=== PATIENT | male | born 1960 | race Caucasian/White ===

== ENCOUNTER 2017-01-04 13:15 | Inpatient (IN) | payer OTHER ==
[~2017-01-04] VITALS: Ht 167.6 cm; Wt 72.2 kg
[2017-01-04] MEDS ORDERED: Heparin 5,000 Unit/mL Inj IVPUSH ONE (15:15)
[2017-01-04] MEDS ORDERED: Heparin 25K Unit/500mL 0.45 NS 25,000 UNIT in IV Premix 1 EACH IV SCH (15:15)
[2017-01-04] MEDS ORDERED: Heparin 5,000 Unit/mL Inj IVPUSH PRN (15:15)
[2017-01-04] MEDS ORDERED: Ondansetron 2 mg/mL 2 mL Inj IVPUSH PRN (15:15)
[2017-01-04 15:30] VITALS: BP 108/51; PULSE 61; RESP 14; O2SAT 99
--- NOTE | 2017-01-04 15:47 | PCM.HPMED ---
Subjective Date of Service Jan 04, 2017 Primary Provider: Admitting Physician: Shorty Beck MD Primary Care Physician: Kodi Ortega MD Attending Physician: Shorty Beck MD History of Present Illness: Chief Complaint:chest pain HISTORY was OBTAINED FROM PATIENT / MEDITECH NOTES History of present illness: A 56-year-old man w/ midsternal chest pain radiates to both arms for 2-3 days intermittent, constant x 1 day, worse w/ inspiration, short of breath, dizziness, all resolved w/ nitroglycerine at [facility] ER , then transferred here due to elevated trop for cardiac cath NSTEMI evaluation , after they discussed w/ Dr. Garza here. orthopnea x years, needs pillows. morning phelgm unchanged. no prior NC no prior CVA hx. mild nicotine urge, no extremity swelling, no vomiting At [facility] ER - VSS, nitorglycerine ( associated w/ BP 104/81 to 85/56, resolved w/ NS bolus) ASA x1, WBC 14.7 PMN 10.9, Hg 15.8 plt 244 Cr 1 LFT normal, Glu 140 lipase 324 Trop I 1.85 at 10:40 am Review of Systems - none of the following - F/C/sick contact / [place] / lightheaded / dizziness / acid reflux / abdominal pain/n/v/diarrhea / bleeding/ bruising / change in voiding / yeast infections / rash Ambulates by self FAMILY HX:F-CHF, sister kidney transplant as teenager SOCIAL HX: smoker MEDICATIONS: PAST MEDICAL/SURGICAL HISTORY: liver nodules 2 years ago, incidental during abdominal pain evaluation tendonitis/ diffuse OA COPD Exam on admission: on RA NAD A and O x 3 mood affect WNL NC/AT / No icterus / No injected eyes / EOMI PERRL / No pharyngeal lesions/ No oral lesions / hearing intact Supple neck CTAB equal chest rise / no accessory muscle use / speaks in full sentences / crackles bilateral no wheeze no rhonchi RRR S1 S2 / no MRG / 2+ radial pulses Soft nt nd + BS no hepatosplenomegaly Lower extremities - No edema No cyanosis No ecchymosis No rash / No jaundice DAWSON Symmetrical facies STUDIES: EKG SR61 no ST changes Trop 0.441 BNP 421.5 TSH 5.33 MAg 2.1 IMAGING: CXR done at [facility], request report tomorrow if not yet faxed Active issues and reason for admission NSTEMI w/ reactive leukocytosis/left shift --lipid panel, serial trop, ASA nitro heparin gtt, pending cardiac cath, Dr. Garza --inr ptt pending Orthopnea w/ elevated BNP --pending echo elevated TSH --pending free t4 Chronic issues known prior to admission, present on admission smoker --nicotine patch/gum prn Liver nodule hx of EtOH, LFT monitored by PCP but no recent imaging apparently DM --SSI Diet npo then DM diet after cardiac cath DVT prophylaxis already heparin gtt ambulate Code full Disposition inpt. Assessment and plan were discussed with patient Allergies Coded Allergies: acetaminophen (Verified Allergy, Severe, Hives, 01/04/17) oxycodone (Verified Allergy, Severe, Hives, 01/04/17) tramadol (Verified Allergy, Severe, Hives, 01/04/17) metformin (Verified Allergy, Mild, stomach pain, 01/04/17) Shorty Beck MD Jan 04, 2017 15:47
[2017-01-04 16:05] LABS: INR 0.95 ratio
[2017-01-04] MEDS ORDERED: Glucose 40% Oral Gel 15 Gm Tube PO PRN (16:20)
[2017-01-04 16:30] LABS: Magnesium 2.1 mg/dL (1.6-2.6)
[2017-01-04] MEDS: Insulin Human REGular 300 Unit/3 mL Inj SUBQ SCH ×2 (16:30→21:08)
[2017-01-04] MEDS: Sodium Chloride LOK Flush 10 mL Syringe IVFLUSH SCH (16:30)
[2017-01-04 16:42] LABS: TROPONIN T 0.441 ug/L (0.0-0.011)
[2017-01-04] MEDS: 0.9% Sodium Chloride 1,000 ML IV SCH (17:00)
[2017-01-04] MEDS ORDERED: Insulin LISPRO 300 Unit/3 mL Inj SUBQ SCH (17:30)
--- NOTE | 2017-01-04 17:46 | DRSVH ---
[facility] [address] [place] [address] Echocardiogram Report Name: ZACH GARRETT JStudy Date: 01/04/2017 Height: 66 in Hospital Exam Location: [facility] Weight: 156 lb Gender: Male BSA: 1.8 m2 : 1960 Age: 56 yrs BP: 99/60 mmHg Reason For Study: Chest pain, NSTEMI Ordering Physician: HOSPITALIST ANGELOerformed By: Ran Brantley Referring Physician: TIANA COPE Interpretation Summary Left ventricular systolic function is low normal with the ejection fraction visually estimated to be 50-55% with hypokinsis of the basal inferior segment extending into the basal inferoseptum which can be a normal variant. There are no other obvious focal wall motion abnormalities. Left ventricular wall thickness is at the upper limits of normal and diastolic parameters indicate normal left ventricular diastolic function and normal filling pressures. The right ventricle is normal size and right ventricular systolic function is at the lower limits of normal. Pulmonary artery pressures cannot be estimated because of the lack of a measurable TR jet velocity but the IVC suggests a low right atrial pressure of 3 mm Hg. Both atria are normal in size. There is mild mitral regurgitation but no other significant valvular heart disease. Procedure: A two-dimensional transthoracic echocardiogram with color flow and Doppler was performed. The study quality was technically adequate. There is no prior echocardiogram noted for this patient. The patient was in sinus bradycardia with heart rates between 56-63 bpm during the exam. Left Ventricle: The left ventricle is normal in size. Left ventricular wall thickness is at the upper limits of normal. Left ventricular systolic function is low normal. The ejection fraction is estimated to be 50-55%. There is hypokinsis of the basal inferior segment that extends into the basal inferoseptum which can be a normal variant. There are no other obvious focal wall motion abnormalities. Assessment of diastolic parameters indicates normal left ventricular diastolic function and normal filling pressures. Right Ventricle: The right ventricle is normal size. Right ventricular systolic function is at the lower limits of normal. Atria: Both atria are normal in size. The interatrial septum is intact with no evidence for an atrial septal defect. Mitral Valve: The mitral valve leaflets appear borderline thickened, but open well. There is mild mitral regurgitation. Aortic Valve: The aortic valve is grossly normal. The aortic valve opens well. No aortic regurgitation is present. Tricuspid Valve: The tricuspid valve is normal. No tricuspid regurgitation. Pulmonary artery pressures cannot be estimated because of the lack of a measurable TR jet velocity. Pulmonic Valve: The pulmonic valve is not well seen, but is grossly normal. There is a trace or physiologic amount of pulmonic regurgitation. There is no other significant valvular heart disease. Great Vessels: The aortic root is normal size. The dimensions of the ascending aorta are normal. The pulmonary artery is normal size. The IVC is of normal diameter and collapses greater than 50% with a sniff. This suggests a low right atrial pressure of 3 mm Hg. Pericardium/ Pleura There is no pericardial effusion. There is no pleural effusion. MMode/2D Measurements & Calculations LVIDd: 4.2 cm RA long axis LVOT diam: 2.2 cm LVIDs: 3.0 cm LA A2 area: 13.8 cm Ao root diam FS: 28.7 % LA A4 area: 15.6 cm RA area EPSS: 0.68 cm LA length (vol) asc Aorta Diam IVSd: 1.0 cm : 9.6 cm LVPWd: 0.96 cm LA vol: 38.7 ml RA vol Ao Arch Diam (Prox LA vol index : 20.6 ml Trans): 2.4 cm RA : 21.5 ml/m2 : 11.5 mm2 LV lucio. diameter/BSA LV sys. diameter/BSA RVD1 (basal) RVD2 (mid): 2.4 cm (cm/m^2): 2.3 (cm/m^2): 1.7 TAPSE: 2.0 cm Doppler Measurements & Calculations Ao V2 max: 113.5 cm/secMV E max giovani MV E/A: 1.2 PA V2 max Ao max P.2 mmHg : 70.7 cm/sec Med Peak E' Giovani : 81.7 cm/sec Ao mean P.6 mmHg MV A max giovani PA mean PG LVOT Max Giovani : 58.3 cm/sec E/E' med: 9.7 : 1.6 mmHg : 69.5 cm/sec MV P1/2t Lat Peak E' Giovani ERICK(I,D): 2.5 cm : 51.5 msec sev ratio: 0.67 E/E' lat: 9.5 E/e' average: 9.6 MV P1/2t max giovani Ao V2 mean LV V1 max PG PA V2 mean : 73.3 cm/sec : 59.8 cm/sec MVA(P1/2t): 4.3 cm2 Ao V2 VTI: 19.1 cmLV V1 VTI: 12.7 cm PA pr(Accel) ERICK(V,D): 2.3 cm2 : 24.5 mmHg ERICK indexed to BSA (cm^2/m^2): 1.4 Reading Physician:05:45 PM
--- NOTE | 2017-01-04 17:53 | NUR ---
Pt admitted to PCC at approx 1515hrs Pt admitted to PCC from [facility]. He denies CP on arrival, VS are stable. He is on room air and sats high 90's. Heparin gtt was started per , cardiac protocol and is currently at 800units per hour. Echo was completed and 12 lead EKG. OT was 70 this evening and no insulin was given. 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 MD will be advised of blood glucose. Pt is resting quietly in the bed, is asking for nicotine patch for cravings. He is in SR occ PVC.
[2017-01-04] MEDS ORDERED: ALBU8.5H2 INH (19:17)
[2017-01-04] MEDS ORDERED: HYDR453.3 EXT (19:17)
[2017-01-04] MEDS ORDERED: INSU100I13 SC (19:17)
[2017-01-04] MEDS ORDERED: IBUP800T28 PO (19:17)
[2017-01-04] MEDS ORDERED: GABA600T2 PO (19:17)
[2017-01-04] MEDS ORDERED: ROB500 PO (19:19)
[2017-01-04] MEDS ORDERED: LISI-571 PO (19:19)
[2017-01-04] MEDS ORDERED: IPRA3AMP INH (19:19)
[2017-01-04] MEDS ORDERED: KETO120S3 EXT (19:19)
--- NOTE | 2017-01-04 19:25 | NUR ---
Pt will be NPO after MN for heart cath in am Pt was seen by cardiology this evening. Pt has been NPO and OT was 70, notified and OK'd pt to eat now and then NPO after MN. Pt is eating dinner now and has had a can of soda. VS continue to be stable, pt denies any CP. Heparin gtt infusing PTT due at 2300hrs.
[2017-01-04 20:09] VITALS: BP 115/77; PULSE 77; RESP 19; O2SAT 96
[2017-01-04] MEDS ORDERED: Albuterol-Ipratropium 3 mL Inhalation Solution NEB SCH (20:30)
[2017-01-04] MEDS: Ipratropium 0.02% 0.5 mg/2.5 mL Inhalation Solution NEB SCH (20:38)
[2017-01-04 20:39] VITALS: PULSE 65; RESP 14; O2SAT 96
--- NOTE | 2017-01-04 21:09 | NUR ---
Blood sugar Patients BS was 70 earlier and patient drank 2 cans of Cola, BS 208 at this time, patient refused insulin at this time. "Usually my blood sugar is 300-400 and its down to the 90's if I don't eat anything in the middle of the night after taking Lantus, I eat supper about 4 o'clock in the evening". Addendum: 01/04/17 at 2324 by VEL FRAUSTO RN Chest Pain 4/10 C/O chest pain 4.10, S.L. Nitro given x1, BP stable, denied any chest pain after dose given, PTT Heparin gtt titrated per protocol and 5000unit bolus given, report to Rom SHABAZZ, all questions answered, patient resting in bed, no distress noted.
--- NOTE | 2017-01-04 22:00 | CONS ---
[address] [address] CONSULTATION REPORT PATIENT: ZACH GARRETT : 1960 MR#: [id number] ADMIT: 01/04/2017 JOB ID: [id number] DATE OF SERVICE: 01/04/2017 CHIEF COMPLAINT: Chest pain. HISTORY OF PRESENT ILLNESS: The patient is a 56-year-old man with multiple coronary artery disease risk factors including diabetes, hypertension, hyperlipidemia, and ongoing smoking. He is now presents with chest pain that has been going on for the past two days. It was 7/10 in intensity on admission to [facility]. It came down to 3/10 after nitroglycerin. Currently he is pain-free. He has subtle less than [address] depressions in precordial leads and elevated troponin T in the setting of normal kidney function. Cardiology is consulted to assist with management. PAST MEDICAL HISTORY: 1. Diabetes diagnosed about two years ago. No complications in terms of nephropathy, retinopathy or neuropathy. 2. Liver nodules two years ago incidentally noted during abdominal pain evaluation. 3. Tendinitis, diffuse osteoarthritis and COPD. FAMILY HISTORY: He says he does not know. He is not close with his family. SOCIAL HISTORY: He smokes. He is disabled. He is very frustrated about his disability application. 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 HOME MEDICATIONS: Lantus. He was previously on glipizide otherwise not on any medications. CURRENT MEDICATIONS IN THE HOSPITAL: 1. Heparin drip per ACS protocol. 2. Regular insulin. 3. Gabapentin as needed. 4. DuoNeb as needed for shortness of breath. 5. Nicorette gum. 6. Nicotine patch. 7. Lipitor 40 mg daily. 8. Morphine as needed for pain. 9. Aspirin 325 mg daily. REVIEW OF SYSTEMS: No weight loss. No cough. No hematuria. Bright red blood per rectum. No hematemesis. Chest pain as outlined in history of present illness, significant anxiety about his financial situation. Chronic low back pain, knee pain and shoulder pain for which he used to take opioid pain medication. Otherwise, 10 point review of systems is negative. PHYSICAL EXAMINATION: Temperature 37 degrees, pulse 61, blood pressure 108/51, satting 99% on room air. Well-nourished man, no apparent distress. Eyes: No scleral icterus. Neck is supple. No carotid bruits. Heart: Normal S1, S2. No murmurs. Lungs: Clear to auscultation anteriorly. Abdomen is soft, positive bowel sounds. No hepatosplenomegaly. Extremities: Warm and well perfused. No clubbing, cyanosis, or edema. Skin: No rashes or lesions. Vascular exam shows normal right common femoral artery pulsation with no bruits. LABORATORIES: Reviewed. Troponin T 0.441, TSH 5.3, free T4 1. A1c is pending. Magnesium 2. INR is 0.9. ASSESSMENT AND PLAN: A 56-year-old man with non-ST segment elevation myocardial infarction and elevated troponin. I recommend for him to undergo cardiac catheterization. Consent obtained. All questions answered. Thank you very much for the opportunity to evaluate him.
[2017-01-04 22:35] LABS: TROPONIN T 0.504 ug/L (0.0-0.011)
[2017-01-04 23:03] VITALS: BP 105/60; PULSE 79; RESP 17; O2SAT 98
[2017-01-05] VITALS (17 sets, daily range): BP systolic 84–110; BP diastolic 54–67; PULSE 70–95; RESP 13–27; O2SAT 95–100
[2017-01-05] MEDS: Ipratropium 0.02% 0.5 mg/2.5 mL Inhalation Solution NEB SCH ×4 (02:30→20:30)
[2017-01-05 03:27] LABS: BASOPHILS % (AUTO) 0.2 % (0-3); EOSINOPHILS % (AUTO) 0.4 % (0-5); MONOCYTES % (AUTO) 8.2 % (4-12); Mean Corpuscular Hemoglobin 30.7 pg (27.0-35.0); NEUTROPHILS % (AUTO) 76.2 % (40-74); Platelet Count 231 bil/L (150-400)
[2017-01-05] MEDS: Sodium Chloride LOK Flush 10 mL Syringe IVFLUSH SCH ×3 (03:31→16:30)
[2017-01-05] MEDS: 0.9% Sodium Chloride 1,000 ML IV SCH ×3 (03:31→22:10)
[2017-01-05] MEDS: Insulin Human REGular 300 Unit/3 mL Inj SUBQ SCH (04:30)
--- NOTE | 2017-01-05 06:12 | NUR ---
insulin/Ptt/Gtt refused insulin, blood sugar @ 0330 = 122, @ 0600 121, is NPO. Heparin running @ 1025 Cardiac Protocol, NS @ 100, SR75, room air.A&O x3 using call light appropriately. Cath packet in chart , signed, Pulses marked , second IV started.
[2017-01-05] MEDS ORDERED: Heparin 5,000 Units/500 mL NS Premix IV ONE ×2 (09:11→11:27)
[2017-01-05] MEDS ORDERED: Nitroglycerin 50,000 mcg/250 mL D5W Premix IV ONE (09:11)
[2017-01-05] MEDS ORDERED: Heparin 1,000 Units/500 mL NS Premix IV ONE ×3 (09:11→12:02)
[2017-01-05] MEDS ORDERED: Heparin 1,000 Unit/mL 10 mL Inj ONE (09:12)
[2017-01-05] MEDS ORDERED: fentaNYL-PF 50 mCg/mL 2 mL Inj ONE ×2 (10:05→11:16)
--- NOTE | 2017-01-05 11:23 | NUR ---
Social Work- Brief Note Data: EMR reviewed. Pt is a 56 year old male admitted 01/04/17 for NSTEMI per H&P. Cardiology is following pt. [facility] and PCP listed is Kodi Ortega MD. Pt resides in [place] in an apartment where he is independent at base. Pt has no DPOA listed, SW left information at bedside. 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 Pt's echo pending. Pt anticipated to discharge home via POV, no anticipated discharge needs. SW will continue to follow if needs arise Assessment: Pt who is independent at base. Plan: Pt anticipated to discharge home via POV, no anticipated discharge needs. SW will continue to follow if needs arise. 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
[2017-01-05] MEDS ORDERED: Atropine 1 mg/10 mL (Code) Syringe ONE (11:45)
--- NOTE | 2017-01-05 11:45 | CS94 ---
[address] [address] DIAGNOSTIC CARDIAC CATHETERIZATION PATIENT: ZACH GARRETT : 1960 MR#: [id number] ADMIT: 01/04/2017 JOB ID: [id number] SERVICE DATE: 01/05/2017 CHIEF COMPLAINT: Chest pressure. PATIENT PRESENTATION: This is a 56-year-old man with non-STEMI transferred from [facility] with troponin T of 0.4 in the setting of normal kidney function and multiple coronary artery disease risk factors, including uncontrolled diabetes. PROCEDURES PERFORMED: 1. Right common femoral artery vascular access. 2. Hemodynamic recording with left ventricular end-diastolic pressure. 3. Left heart catheterization - selective coronary angiogram. PROCEDURE: Following informed consent, patient was prepped and draped in usual sterile fashion. A 6-Maltese sheath was placed in a right common femoral artery. Sheath placement was confirmed via femoral angiogram. JL4 and JR4 catheters were used to engage left main and right coronary artery ostia, respectively. There was dampening on engagement with a 6-Maltese JR4 catheter, so I used 5-Maltese JR4 catheter to optimize engagement. Hand injection in craniocaudal angulation was used to obtain selective coronary angiograms. All exchanges were performed over a wire. Pigtail catheter was advanced in left ventricle. Left ventricular end-diastolic pressure was recorded. There was no evidence of aortic stenosis based on pullback. I deliberately deferred cardiac ventriculogram in an attempt to conserve contrast due to upcoming intervention. The patient tolerated the diagnostic portion of the procedure well, and case was turned over for intervention. FINDINGS: Hemodynamics: Patient was in normal sinus rhythm. Heart rate 90 beats per minute. Blood pressure fluctuated between 98 up to 120 mmHg systolic. Left ventricular end-diastolic pressure was 25 mmHg. There was no evidence of aortic stenosis based on pullback. Femoral angiogram: The patient has a high bifurcation at the 50th percentile taurus of the femoral head. He almost has two profundas. He has a superior profunda and then more inferior profunda. The sheath enters the right common femoral artery at the bifurcation of the superior profunda from the remainder of the common femoral artery. There was no evidence of contrast extravasation or dissection. Coronary angiogram: Left main is a normal caliber vessel. It gives rise to left anterior descending, a very small ramus intermedius, and codominant circumflex. There is no dampening on engagement or coronary artery lesions. Left anterior descending is a wrap-around vessel which gives rise to a big first diagonal branch, small second diagonal branch, and a very, very tiny third diagonal branch, as well as multiple septal perforators. There is a 30% to 40% stenosis in the midportion of the LAD. It appears to be somewhat eccentric. It is worse on the left cranial view, but after detailed evaluation, it really does not appear to be hemodynamically significant. Ramus intermedius is a very small vessel. It does not appear to have any hemodynamically significant atherosclerotic burden. Circumflex is a codominant vessel. It gives rise to small obtuse marginal branch number one, very tiny second OM, large third OM, and a very large fourth obtuse marginal branch which functions as a PDA. There are collaterals present which are best appreciated on our cranial view that appeared to spread from left anterior descending septal starch mangle tender and fill the right-sided PDA. The circumflex is free of hemodynamically significant disease. There was a 30% to 40% lesion care home between the second and third obtuse marginal branch. Right coronary artery is probably a codominant vessel, but we cannot really see the PDA of the right coronary artery because it is occluded in its mid portion. Right coronary artery is a medium caliber vessel which has a 40% to 50% long stenosis proximally. It gives rise to RV branch and then it is basically flush occluded. There is flow in the more distal part of the right coronary artery originating via right to right collaterals. It is best appreciated on AP cranial view. IMPRESSION: 1. Occluded mid right which fills via left to right and right to right collaterals. 2. High filling pressure 25 mmHg. 3. High bifurcation with interesting two separate profundas. PLAN: Recommend an attempted intervention of the right coronary artery, recognizing that it is going to be technically challenging because of the occlusion, but it appears to be relatively recent, so there may be a chance that the interventional colleague can go through the occlusion and restore flow. Thank you very much for the opportunity to evaluate this patient.
[2017-01-05] MEDS ORDERED: Glucose 40% Oral Gel 15 Gm Tube PO PRN (11:55)
[2017-01-05] MEDS: Insulin LISPRO 300 Unit/3 mL Inj SUBQ SCH ×3 (12:00→22:39)
--- NOTE | 2017-01-05 12:02 | PCM.PNMED ---
Subjective Date of Service Jan 05, 2017 Subjective Patient is laying comfortably in bed. He denies chest pain, shortness of breath , diaphoresis, nausea at the moment. 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 Exam Vital Signs Vital Sign - Last Date Time Temp Pulse Resp B/P Pulse Ox O2 Delivery O2 Flow Rate FiO2 01/05/17 08:38 36.8 90 18 107/62 95 Room Air Intake and Output 01/04/17 01/04/17 01/05/17 Cumulative From/Thru 15:00 23:00 07:00 01/04/17 15:02 - 01/05/17 06:12 Intake Total 1021 ml 1890 ml 2911 ml Output Total 0 ml 900 ml 900 ml Balance 1021 ml 990 ml 2011 ml Intake Oral 0 ml 447 ml 447 ml IV Total 1021 ml 1443 ml 2464 ml Output Urine Total 0 ml 900 ml 900 ml Exam General: Well-nourished man, no apparent distress. Eyes: No scleral icterus. Neck is supple. No carotid bruits. Heart: Regular rate and rhythm, no murmurs. Lungs: Clear to auscultation anteriorly. Abdomen is soft, positive bowel sounds Extremities: Warm and well perfused. Lab and Diagnostics Result Diagram: 01/05/17 0300 01/05/17 0300 Assessment & Plan Kenneth Montenegro is a 56-year-old man with history of diabetes mellitus, on lantus at home, who presented to [facility] from [facility] with chest pain for past two days and elevated troponin. Patient has been admitted for management and treatment of non-ST segment elevation myocardial infarction. 1. Non-ST segment elevation myocardial infarction, present on admission. Active -Multiple coronary artery disease risk factors:diabetes, hypertension, hyperlipidemia, and ongoing smoking -Patient is symptomatic, with elevated troponin and ST changes on EKG -Heparin drip per cardiac protocol -Aspirin, nitro, metoprolol, atorvastatin, clopidogrel, morphine -Cardiology consulted -Patient is to undergo cardiac catheterization this morning 2. Leukocytosis, present on admission. Active -White blood count of 15.7 on admission -Will order UA and chest x-ray -Procalcitonin ordered -Continue to monitor 3. Diabetes mellitus, typ 2, present on admission. Stable -Diagnosed about two years ago, no complications in terms of nephropathy, retinopathy or neuropathy -On lantus at home -Nutritional and low lose correctional insulin -Diabetic diet 4. Chronic obstructive pulmonary disease. Presumed stable -Patient continues to smoke -Smoking cessation recommended -Nicotine patch 5. Liver nodules, presumed stable -Noted accidentally two years ago during abdominal pain evaluation Disposition: Inpatient status Pain Evaluation: Adequate Pain Control VTE Prophylaxis: Other (Heparin drip) Resuscitation Status: CPR: Attempt Resuscitation Attending Statement The patient was seen and examined together with House Staff/Resident on 01/05/17 and I agree with the history, exam and plan as outlined in the note above. Torri Howard DO Jan 05, 2017 12:02 Armando Gray Jan 09, 2017 19:20
--- NOTE | 2017-01-05 12:34 | PROG NOTE ---
[address] [address] PROGRESS NOTE PATIENT: ZACH GARRETT : 1960 MR#: [id number] ADMIT: 01/04/2017 JOB ID: [id number] DATE: 01/05/2017 CHIEF COMPLAINT: Shortness of breath and chest pain. SUBJECTIVE: Overnight, patient had no chest pain. He underwent cardiac catheterization today which demonstrated occluded right coronary artery. He is undergoing intervention of this. PHYSICAL EXAMINATION: Vital signs: Temperature 36.8 up to 37.1. Blood pressure 107/62, pulse 70 up to 90 beats per minute. He is satting 95% to 98% on room air. The patient had no events on telemetry. Well-nourished man, in no apparent distress. Eyes: No scleral icterus. Neck is supple. No carotid bruits. Heart: Normal S1, S2. No murmurs. Lungs are clear anterior. Abdomen is soft, positive bowel sounds. No hepatosplenomegaly. Extremities warm and well perfused. No clubbing, cyanosis, or edema. Skin: No rashes or lesions. CURRENT MEDICATIONS: 1. Plavix 75 mg daily. 2. Heparin drip per ACS protocol. 3. Aspirin 325 mg daily. 4. Lipitor 40 mg daily. 5. Toprol-XL 25 mg daily. 6. He is on low-dose sliding scale insulin. ASSESSMENT AND PLAN: A 66-year-old man with non ST-elevation myocardial infarction. Catheterization showed occluded right. Hopefully this is a fresh occlusion so Dr. Mendez can fix it.
--- NOTE | 2017-01-05 12:39 | NUR ---
Received Received from pipelines laborer about 1215. SBP 80's and 90's with MAP in 60s. Tele ST in 70's. 250ml NS bolus given. No bleeding or hematoma in right groin. BG 84. Denies pain but C/O nausea. Zofran 4mg IVP given. Unable to find . IVF at 100. Monitor per orders.
[2017-01-05] MEDS ORDERED: 0.9% Sodium Chloride 250 ML IV PRN (12:53)
[2017-01-05] MEDS ORDERED: 0.9% Sodium Chloride 1,000 ML IV PRN (12:53)
[2017-01-05] MEDS ORDERED: Ondansetron 2 mg/mL 2 mL Inj IVPUSH PRN (12:55)
[2017-01-05] MEDS ORDERED: HYDROcodone-APAP 5-325 mg Tablet PO PRN (12:55)
[2017-01-05] MEDS ORDERED: Atropine 1 mg/10 mL (Code) Syringe IVPUSH PRN (12:55)
--- NOTE | 2017-01-05 13:05 | DI95 ---
[address] [address] INTERVENTIONAL CARDIAC CATHETERIZATION PATIENT: ZACH GARRETT : 1960 MR#: [id number] ADMIT: 01/04/2017 JOB ID: [id number] DOS: 01/05/17 PROCEDURE: Percutaneous intervention on the right coronary artery. INDICATION: Non-STEMI. PROCEDURAL DETAILS: The reader and the coders are referred to the procedure log for complete details. Briefly, 6-Kuwaiti system, right coronary catheter, Runthrough wire. The patient had a total occlusion in his mid RCA. This was crossed with a Runthrough wire and then balloon dilated with a 2.0 balloon and finally stented with a 3.0 x 23 mm Xience stent delivered at atmospheres with excellent angiographic results. The patient is advised to stay on dual antiplatelet therapy for at least one month postprocedure. CRUZITO
--- NOTE | 2017-01-05 14:30 | NUR ---
transfer to rm 2019 Pt had stable recovery post heart cath, VSS on RA, groin site soft non tender. report given the Ebony Navarrete RN.
--- NOTE | 2017-01-05 15:34 | DRSVH ---
PROCEDURE: X-RAY CHEST ONE VIEW, PORTABLE ([id number]) INDICATIONS: NSTEMI, elevated WBC TECHNIQUE: One view of the chest was acquired. COMPARISON: None. FINDINGS: Surgical changes and devices: None. Lungs and pleura: No pleural effusions or pneumothorax. Lungs are clear. Mediastinum: Mediastinal contours appear normal. Heart size is normal. Bones and chest wall: No suspicious bony lesions. Overlying soft tissues appear unremarkable. IMPRESSION: No acute cardiopulmonary disease. Dictated by: Rodriguez Sheets [facility] Interpreted: Cleopatra Alvarez MD on 01/05/2017 at 15:32 Transcribed by: ITA on 01/05/2017 at 15:33 Approved by: Cleopatra Alvarez MD, PhD on 01/05/2017 at 16:47
[2017-01-06] MEDS: Sodium Chloride LOK Flush 10 mL Syringe IVFLUSH SCH ×2 (00:37→08:32)
[2017-01-06] MEDS: Ipratropium 0.02% 0.5 mg/2.5 mL Inhalation Solution NEB SCH (02:21)
[2017-01-06 04:13] VITALS: BP 96/62; PULSE 79; RESP 18; O2SAT 96
[2017-01-06 05:21] VITALS: PULSE 82
[2017-01-06 05:29] LABS: BASOPHILS % (AUTO) 0.3 % (0-3); EOSINOPHILS % (AUTO) 0.8 % (0-5); MONOCYTES % (AUTO) 13.1 % (4-12); Mean Corpuscular Hemoglobin 31.1 pg (27.0-35.0); Mean Corpuscular Volume 90.9 fL (81-100); NEUTROPHILS % (AUTO) 65.2 % (40-74); Platelet Count 202 bil/L (150-400)
[2017-01-06] MEDS ORDERED: diphenhydrAMINE 25 mg Capsule PO ONE (06:00)
[2017-01-06 08:00] VITALS: PULSE 76
[2017-01-06] MEDS: Insulin LISPRO 300 Unit/3 mL Inj SUBQ SCH ×2 (08:00→11:44)
[2017-01-06] MEDS: 0.9% Sodium Chloride 1,000 ML IV SCH (08:10)
[2017-01-06 08:19] VITALS: BP 98/58; PULSE 72; RESP 19; O2SAT 96
[2017-01-06] MEDS ORDERED: MeTOProlol XL 25 mg ER24 Tablet PO SCH (08:30)
[2017-01-06 11:23] VITALS: BP 98/60; PULSE 83; RESP 22; O2SAT 98
--- NOTE | 2017-01-06 12:04 | NUR ---
Social Work: Discharge D: Pt discussed in am rounds. Pt is medically stable for discharge. Pt is eager to leave. Pt is post cath and stent placement. Pt has been ambulating I since procedure. RN and MD express no concerns about discharge home. EMR reviewed; pt has been ambulating I, per [employer]. Pt lives in [place] with his s/o. NO social work needs identified at this time. A: Pt who is I at baseline. P: pt to discharge home with no sw needs; family to transport. GOPI Potter
[2017-01-06] MEDS ORDERED: ASPI81TA3 PO (12:17)
[2017-01-06] MEDS ORDERED: CLOP75TA28 PO (12:17)
[2017-01-06] MEDS ORDERED: ATOR40TA69 PO (12:17)
[2017-01-06] MEDS ORDERED: METO25TA99 PO (12:17)
--- NOTE | 2017-01-06 12:27 | PCM.DIMED ---
Discharge Instructions Date of Service Jan 06, 2017 Dates of Hospitalization Jan 04, 2017 at 14:54 Discharge Diagnosis Discharge Diagnosis 1. Acute Non-ST Elevation Myocardial Infarction (NSTEMI), present on admission. - post percutaneous intervention on the right coronary artery with a 3.0 x 23 mm Xience stent on 01/05/17 2. Hyperlipidemia - Triglyceride: 198 - Cholesterol: 232 - LDL: 160.400 - HDL: 39.600 3. Diabetes mellitus, typ 2, present on admission. Stable 4. Chronic obstructive pulmonary disease. Presumed stable 5. History of liver nodules, presumed stable Diet Low fat, Low Sodium, Heart Healthy, Diabetic Activity No restrictions Call your provider Fever or Chills, Shortness of breath, Bleeding, Chest pain Patient Instructions Seek immediate medical attention if any new or worsening signs or symptoms occur. Follow-up plan 1. Followup with cardiology () in 3-4 weeks [facility] [address] [place] [address] 2. Followup with primary care provider within one week Follow-up Provider: Kodi Ortega MD Provider: Dana Garza MD, Masoud Jan 06, 2017 12:27
--- NOTE | 2017-01-06 12:37 | PCM.PNCARD ---
Subjective Date of service Jan 06, 2017 Chief Complaint Chest pain History of Present Illness This is a 56-year-old gentleman with no known prior coronary disease. The patient presented with non-ST elevation myocardial infraction. The patient was taken to the catheterization laboratory by Dr. Garza and was found to have an occluded mid RCA which was felt to be relatively fresh. The patient proceeded with percutaneous intervention by Dr. Mendez and had balloon angioplasty with stenting with a 3.0 x 23 mm drug-eluting stent. Today the patient still much better. Patient has walked around and is completely asystematic with low blood pressure. He is currently on Toprol-XL 25 mg once a day. In addition to this he is also taking aspirin, statins, Plavix. It appears the patient has reached his maximum benefit of this hospitalization. His telemetry showed very short run of ventricular tachycardia but otherwise within normal limits. The patient has has walked around without any chest pain or any lightheadedness. Constitutional: Denies: Chills, Fever Cardiovascular: Denies: Chest Pain Gastrointestinal: Denies: Abdominal Pain Neurological: Denies: Confusion Endocrine: Reports: Blood Glucose Review Exam Vital Signs Vital Sign - Last Date Time Temp Pulse Resp B/P Pulse Ox O2 Delivery O2 Flow Rate FiO2 01/06/17 11:23 37.0 83 22 98/60 98 Room Air Intake and Output 01/05/17 01/05/17 01/06/17 Cumulative From/Thru 15:00 23:00 07:00 01/04/17 15:02 - 01/06/17 05:33 Intake Total 874 ml 3785 ml Output Total 1425 ml 2325 ml Balance -551 ml 1460 ml Intake Oral 480 ml 927 ml IV Total 394 ml 2858 ml Output Urine Total 1425 ml 2325 ml General: Pleasant Cooperative Skin: Warm & dry to touch Head: Normocephalic Chest: Clear auscultation w/o rales/wheeze Cardiac: Regular rhythm Pulses: Pulses full/equal all extremities Extremities: Warm w/o deformities,erythema noted Neurological: Alert & oriented Lab and Diagnostics Result Diagram: 01/06/1751001/06/17510 Assessment & Plan Problems: (1) Non-ST elevation myocardial infarction (NSTEMI) Plan: Patient symptoms have abated. He is on appropriate medical therapy. He should be discharged on Toprol-XL 25 mg once a day, atorvastatin 40 mg once a day at bedtime, aspirin 325 mg once a day, Plavix 75 mg once a day. I have message are operating room scheduler to set up an appointment with Dr. Garza in about 4 weeks. I have sent his prescriptions to his preferred pharmacy. The patient is stable to be discharged. Status: Acute ICD Code: I21.4 (2) CAD (coronary artery disease) Qualifiers: Coronary Disease-Associated Artery/Lesion type: [place] artery [place] vs. transplanted heart: sitka heart Associated angina: with unstable angina Qualified Code: I25.110 - Atherosclerotic heart disease of [place] coronary artery with unstable angina pectoris Status: Resolved ICD Code: I25.10 (3) Smoker Status: Acute ICD Code: F17.200 Pain Evaluation: Adequate Pain Control VTE Prophylaxis: Other (Heparin drip) Resuscitation Status: CPR: Attempt Resuscitation Time spent 20 minutes Kai Avila MD Jan 06, 2017 12:37
--- NOTE | 2017-01-06 13:46 | NUR ---
Discharge Patient was discharge home in stable condition after 1300 today. Patient ambulated in room and hallways before discharge and tolerated the activity well. He denied having any shortness of breath, discomfort or chest pain. Right groin puncture side remained stable with no bruising or tenderness. Patient and his verbalized understanding of discharge home instructions regarding diet, activity restrictions, puncture side care, home medications, follow up appointments/care and when to seek medical help. Attending ultrasound sonographer call in new medications prescriptions to pharmacy of patients choice. IV was removed intact prior to discharge .Patient was taking PO well with adequate urine output. Patient walked to his 's car accompanied by his and staff member but he declined any assistance otherwise.
--- NOTE | 2017-01-06 18:23 | PCM.DC.MED ---
Discharge Summary Date of Service Jan 06, 2017 Dates of Hospitalization Date of Hospital Admission Jan 04, 2017 at 14:54 Date of Discharge: Jan 06, 2017 Providers: Admitting Physician: Shorty Beck MD Primary Care Physician: Kodi Ortega MD Attending Physician: Shorty Beck MD Diagnosis at Time of Discharge Diagnosis at Time of Discharge 1. Acute Non-ST Elevation Myocardial Infarction (NSTEMI), present on admission. - post percutaneous intervention on the right coronary artery with a 3.0 x 23 mm Xience stent on 01/05/17 2. Hyperlipidemia - Triglyceride: 198 - Cholesterol: 232 - LDL: 160.400 - HDL: 39.600 3. Diabetes mellitus, typ 2, present on admission. Stable 4. Chronic obstructive pulmonary disease. Presumed stable 5. History of liver nodules, presumed stable Consultations 1. Cardiology Procedures XRay, CTs & MRIs Date of Service: 01/05/17 1151 PROCEDURE: X-RAY CHEST ONE VIEW, PORTABLE ([id number]) IMPRESSION: No acute cardiopulmonary disease. Dictated by: Rodriguez Sheets [facility] Interpreted: Cleopatra Alvarez MD on 01/05/2017 at 15:32 Transcribed by: ITA on 01/05/2017 at 15:33 Approved by: Cleopatra Alvarez MD, PhD on 01/05/2017 at 16:47 Cardiac Echo Impression Date of Service: 01/04/17 1512 Echocardiogram Report Interpretation Summary Left ventricular systolic function is low normal with the ejection fraction visually estimated to be 50-55% with hypokinsis of the basal inferior segment extending into the basal inferoseptum which can be a normal variant. There are no other obvious focal wall motion abnormalities. Left ventricular wall thickness is at the upper limits of normal and diastolic parameters indicate normal left ventricular diastolic function and normal filling pressures. The right ventricle is normal size and right ventricular systolic function is at the lower limits of normal. Pulmonary artery pressures cannot be estimated because of the lack of a measurable TR jet velocity but the IVC suggests a low right atrial pressure of 3 mm Hg. Both atria are normal in size. There is mild mitral regurgitation but no other significant valvular heart disease. Reading Physician:05:45 PM Invasive Procedures INTERVENTIONAL CARDIAC CATHETERIZATION PROCEDURE: Percutaneous intervention on the right coronary artery. INDICATION: Non-STEMI. PROCEDURAL DETAILS: The reader and the coders are referred to the procedure log for complete details. Briefly, 6-Chinese system, right coronary catheter, Runthrough wire. The patient had a total occlusion in his mid RCA. This was crossed with a Runthrough wire and then balloon dilated with a 2.0 balloon and finally stented with a 3.0 x 23 mm Xience stent delivered at atmospheres with excellent angiographic results. The patient is advised to stay on dual antiplatelet therapy for at least one month postprocedure. Jenaro Mendez MD 01/05/17 1202 <Electronically signed by Jenaro Mendez MD> 01/05/17 5819 Brief History As noted in H&P by Dr. Beck: A 56-year-old man w/ midsternal chest pain radiates to both arms for 2-3 days intermittent, constant x 1 day, worse w/ inspiration, short of breath, dizziness , all resolved w/ nitroglycerine at [facility] ER, then transferred here due to elevated trop for cardiac cath NSTEMI evaluation, after they discussed w / Dr. Garza here. orthopnea x years, needs pillows. morning phelgm unchanged. no prior [place] no prior CVA hx. mild nicotine urge, no extremity swelling, no vomiting At [facility], nitorglycerine ( associated w/ BP 104/81 to 85/56, resolved w/ NS bolus) ASA x1, WBC 14.7 PMN 10.9, Hg 15.8 plt 244 Cr 1 LFT normal, Glu 140 lipase 324 Trop I 1.85 at 10:40 am Hospital Course # Acute Non-ST segment elevation myocardial infarction, present on admission. -Cardiology consulted -Post percutaneous intervention on the right coronary artery on 01/05 (as noted above) -Cleared for discharge by cardiology on 01/06 # Diabetes mellitus, typ 2, present on admission. Stable -Diagnosed about two years ago, no complications in terms of nephropathy, retinopathy or neuropathy -On lantus at home # Chronic obstructive pulmonary disease. Presumed stable -Patient continues to smoke -Smoking cessation recommended -Nicotine patch # Liver nodules, presumed stable -Noted accidentally two years ago during abdominal pain evaluation by day of discharge lungs CTA bilat. CV: RRR. Exam Vital Signs (Last) Date Time Temp Pulse Resp B/P Pulse Ox O2 Delivery O2 Flow Rate FiO2 01/06/17 11:23 37.0 83 22 98/60 98 Room Air Test 01/04/17 15:34 01/04/17 21:30 01/05/17 03:00 01/05/17 09:25 Prothrombin Time 10.1sec (8.1-12.5) Prothromb Time International Ratio 0.95ratio Hemoglobin A1c 10.2% (4.8-5.6) Magnesium Level 2.1mg/dL (1.6-2.6) Pro-B-Type Natriuretic Peptide 421.5pg/mL (0-210) Thyroid Stimulating Hormone (TSH) 5.330uIU/mL (0.450-4.500) Free Thyroxine 1.02ng/dL (0.82-1.77) Total Creatine Kinase 436U/L (21-232) Creatine Kinase MB 24.1ng/mL (0.0-10.4) Creatine Kinase MB % 5.5% (0.0-5.0) Troponin T 0.504ug/L (0.0-0.011) Triglycerides Level 198mg/dL (0-149) Cholesterol Level 232mg/dL (100-199) LDL Cholesterol, Calculated 160.400mg/dL (0-99) VLDL Cholesterol 39.600mg/dL HDL Cholesterol 32mg/dL (>39) Cholesterol/HDL Ratio 7.25 (0.0-4.4) Activated Partial Thromboplast Time 39.4sec (22.8-33.0) Test 01/06/17 05:11 White Blood Count 11.7th/mm3 (3.8-10.1) Red Blood Count 4.18mil/mm3 (4.40-5.80) Hemoglobin 13.0g/dL (13.8-17.2) Hematocrit 38.0% (41.0-50.0) Mean Corpuscular Volume 90.9fL (81-100) Mean Corpuscular Hemoglobin 31.1pg (27.0-35.0) Mean Corpuscular Hemoglobin Concent 34.2% (32.0-37.0) Red Cell Distribution Width 12.9% (12.3-15.4) Platelet Count 202bil/L (150-400) Neutrophils (%) (Auto) 65.2% (40-74) Lymphocytes (%) (Auto) 20.3% (14-46) Monocytes (%) (Auto) 13.1% (4-12) Eosinophils (%) (Auto) 0.8% (0-5) Basophils (%) (Auto) 0.3% (0-3) Sodium Level 139mEq/L (134-144) Potassium Level 4.5mEq/L (3.5-5.2) Chloride Level 104mEq/L (97-108) Carbon Dioxide Level 24mmol/L (18-29) Blood Urea Nitrogen 10mg/dL (6-24) Creatinine 0.97mg/dL (0.76-1.27) Estimat Glomerular Filtration Rate 85mL/min (>59) Glucose Level 135mg/dL (60-99) Calcium Level 9.1mg/dL (8.5-10.1) Total Bilirubin 0.7mg/dL (0.0-1.2) Aspartate Amino Transf (AST/SGOT) 28U/L (0-50) Alanine Aminotransferase (ALT/SGPT) 15U/L (0-44) Alkaline Phosphatase 75U/L (25-150) Total Protein 6.0g/dL (6.4-8.4) Albumin 4.0g/dL (3.4-5.0) Procalcitonin 0.14ng/mL (0.00-0.08) Discharge Medications Discharge Medications Aspirin Chew (Aspirin Chew) 81 Mg Chew 81 MG PO DAILY Prescribed by: ROSA ELENA CAMACHO MD Atorvastatin Calcium (Atorvastatin Calcium) 40 Mg Tablet 40 MG PO HS Prescribed by: ROSA ELENA CAMACHO MD Clopidogrel (Clopidogrel) 75 Mg Tablet 75 MG PO DAILY Prescribed by: ROSA ELENA CAMACHO MD Gabapentin (Gabapentin) 600 Mg Tablet 600 MG PO QID (Reported) Insulin Glargine (Lantus U100 Solostar Insulin Pen) 100 Unit/1 Ml Insuln.pen 50 UNITS SC HS (Reported) Ketoconazole (Ketoconazole) 120 Ml Shampoo 1 APPLIC EXT 3xweekly (Reported) Methocarbamol (Methocarbamol) 500 Mg Tablet 1,000 MG PO BID (Reported) Metoprolol Succinate ER (Metoprolol Succinate ER) 25 Mg Tab.er.24h 25 MG PO DAILY Prescribed by: ROSA ELENA CAMACHO MD As needed Albuterol HFA (Proair HFA) 8.5 Gm Hfa.aer.ad 2 PUFFS INH Q4H PRN PRN For Shortness of Breath (Reported) Hydrocortisone (Hydrocortisone) 453.6 Gm Cream..g. 1 APPLIC EXT DIRECTED PRN PRN hemorrhoids (Reported) Ibuprofen (Ibuprofen) 800 Mg Tablet 800 MG PO DAILY PRN PRN For Pain (Reported) Ipratropium/Albuterol Sulfate (Iprat-Albut 0.5-3(2.5) mg/3 mL Inhalant Soln) 3 Ml Ampul.neb 2.5 MG INH Q4H PRN PRN For Shortness of Breath (Reported) Followup Plan Disposition: Home Follow-up plan 1. Followup with cardiology () in 3-4 weeks [facility] [address] [id number] 2. Followup with primary care provider within one week Discharge Diet: Low fat, Low Sodium, Heart Healthy, Diabetic Discharge Activity: No restrictions Patient Instructions Seek immediate medical attention if any new or worsening signs or symptoms occur. Follow-up Provider: Kodi Ortega MD Provider: Dana Garza MD Time spent 30 min copies to: Kodi Ortega MD; Dana Garza MD, Masoud Jan 06, 2017 18:23
== END 2017-01-06 13:20 | disposition home or self-care (01) | DRG 247 ==
LOC: CCU 14:54 → PCC 16:57
PROVIDERS: ADMIT Urology; ATTEND Urology
PROC: 027034Z Dilation of Coronary Artery, One Artery with Drug-eluting Intraluminal Device, Percutaneous Approach (ICD-10-PCS; principal; 2017-01-05)
PROC: 4A023N7 Measurement of Cardiac Sampling and Pressure, Left Heart, Percutaneous Approach (ICD-10-PCS; 2017-01-05)
PROC: B2111ZZ Fluoroscopy of Multiple Coronary Arteries using Low Osmolar Contrast (ICD-10-PCS; 2017-01-05)
DX: I21.4 Non-ST elevation (NSTEMI) myocardial infarction (principal); E11.65 Type 2 diabetes mellitus with hyperglycemia; I10 Essential (primary) hypertension; Z79.4 Long term (current) use of insulin; E78.5 Hyperlipidemia, unspecified; F17.200 Nicotine dependence, unspecified, uncomplicated; J44.9 Chronic obstructive pulmonary disease, unspecified; I25.10 Atherosclerotic heart disease of native coronary artery without angina pectoris